=== PATIENT | female | born 2005 | race Caucasian/White ===

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

== ENCOUNTER 2024-03-19 21:08 | Inpatient (IN) | payer BC, MEDICAID, SELFPAY ==
[2024-03-19 21:13] VITALS: BP 127/74; PULSE 102; RESP 18; TEMP 37; O2SAT 98; BMI 36.6
[2024-03-19 21:35] LABS: Basophils # 0.1 10^3/uL (0.0-0.1); Basophils % 0.8 %; Eosinophils # 0.2 10^3/uL (0.0-0.8); Hematocrit 40.5 % (36-47); Lymphocytes # 1.6 10^3/uL (1.5-6.5); Lymphocytes % 21.4 %; Mean Corpuscular HGB Conc 30.6 g/dL (30-55); Mean Corpuscular Hemoglobin 25.4 pg (27-33); Mean Corpuscular Volume 82.8 fl (85-98); Mean Platelet Volume 9.2 fL (7.4-10.4); Monocytes # 0.4 10^3/uL (0.2-0.9); Monocytes % 5.6 %; Neutrophils % 70.1 %; Nucleated Red Blood Cells % 0 %; Platelet Count 335 10^3/cmm (157-399); Red Blood Count 4.89 10^6/uL (3.85-5.65); Red Cell Distribution Width 16.7 % (12.1-15.1); White Blood Count 7.56 10^3/uL (4.5-13.0)
--- NOTE | 2024-03-19 21:41 | ED.C_ITS ---
HPI - Psych 2 General: Chief Complaint: Psychiatric Symptoms Stated Complaint: MHE\SI Maybe Time Seen by Provider: 03/19/24 21:17 History of Present Illness: 18-year-old female with a history of dep ression. She has had admissions as an adolescent a couple of years ago for depression and self-harm. She presents with worsening depression. She states that she is having suicidal thoughts, and has multiple ideas as far as a plan. She feels unsafe at home. Medically she has no treated problems. Review of Systems 2 Const: Denies: fever(s), chills or body aches Eyes: Denies: change in vision Card: Denies: chest pain or palpitations Resp: Denies: dyspnea, productive cough, non-productive cough or wheezing GI: Denies: abdominal pain, nausea, vomiting, diarrhea or hematochezia : Denies: difficulty voiding Skin/Breast: Denies: rash Neuro: Denies: headache(s), weakness in extremities, dizziness or confusion PFSH ED 2 PFSH: Medical History Hirsutism Constipation Reflux esophagitis Hot flashes Fatigue Irregular bleeding Psychiatric care History of cardiac murmur As an infant she had evaluation and was followed by cardiology until age 2 with innocent murmur confirmed by echocardiogram. Surgical History S/P gastric sleeve procedure Performed in 2019 prior to moving to [place]. Family History Father Hyperlipidemia Hypertension Mother Diabetes Denies family history of Colon cancer Ovarian cancer Heart disease Breast cancer Uterine cancer Thyroid disease Stroke Physical Exam 2 Const: COMMON NORMALS: no acute distress GENERAL APPEARANCE: cooperative; not ill appearing and not frail appearing HENMT: COMMON NORMALS: normocephalic, atraumatic and Normal external nose present HEAD & SCALP: normocephalic and atraumatic FACE & SINUS: normal facial exam and face symmetric NOSE: Normal external nose present Eye: COMMON NORMALS: Equal, round and reactive pupils present and EOMs intact bilaterally PUPIL: Yes Equal, round and reactive pupils present Neck/C-Spine: GENERAL: Yes trachea midline Chest: CHEST: Yes Symmetrical chest wall rise Resp: COMMON NORMALS: normal respiratory effort, No retractions, No use of accessory muscles and clear to auscultation bilaterally AUSCULTATION: clear to auscultation bilaterally Cardio: COMMON NORMALS: regular rate and regular rhythm RATE: regular rate RHYTHM: regular rhythm GI: COMMON NORMALS: Normal to inspection, nondistended, normoactive bowel sounds present Extremity: COMMON NORMALS: no pedal edema Neuro: KAILYN COMA SCALE: document GCS findings [place] coma scale eye opening: Spontaneous Kailyn coma scale verbal response: Orientated Kailyn coma scale motor response: Obey commands Kailyn coma scale total score: 15 S ENSORY EXAM: Yes extremities (intact) Psych: COMMON NORMALS: speech normal SPEECH: Yes normal speech Skin: COMMON NORMALS: no rashes or lesions noted GENERAL SKIN EXAM: no rashes or lesions noted Course 2 Vital Signs: Vital signs: Vital Signs Temperature 98.2 F 03/19/24 23:08 Pulse Rate 65 03/19/24 23:08 Respiratory Rate 18 03/19/24 23:08 Blood Pressure 127/85 03/19/24 23:08 Pulse Oximetry 100 03/19/24 23:08 Oxygen Delivery Me thod Room Air 03/19/24 23:14 MDM - Psych Medical Decision Making Patient with a history of depression. She presents with worsening depression and suicidal ideation. Medically, she is quite stable. Lab Data 03/19/24 21:21 03/19/24 21:21 Laboratory Results WBC 7.56 10^3/uL (4.5-13.0) 03/19/24 21:21 RBC 4.89 10^6/uL (3.85-5.65) 03/19/24 21:21 Hgb 12.40 g/dL (12.4-14.8) 03/19/24 21:21 Hct 40.5 % (36-47) 03/19/24 21:21 MCV 82.8 fl (85-98) L 03/19/24 21:21 MCH 25.4 pg (27-33) L 03/19/24 21:21 MCHC 30.6 g/dL (30-55) 03/19/24 21:21 RDW 16.7 % (12.1-15.1) H 03/19/24 21:21 Plt Count 335 10^3/cmm (157-399) 03/19/24 21:21 MPV 9.2 fL (7.4-10.4) 03/19/24 21:21 Neut % (Auto) 70.1 % 03/19/24 21:21 Lymph % (Auto) 21.4 % 03/19/24 21:21 [place] % (Auto) 5.6 % 03/19/24 21:21 Eos % (Auto) 2.0 % 03/19/24 21:21 Baso % (Auto) 0.8 % 03/19/24 21:21 Neut # (Auto) 5.30 10^3/uL (1.8-8.0) 03/19/24 21:21 Lymph # (Auto) 1.6 10^3/uL (1.5-6.5) 03/19/24 21:21 [place] # (Auto) 0.4 10^3/uL (0.2-0.9) 03/19/24 21:21 Eos # (Auto) 0.2 10^3/uL (0.0-0.8) 03/19/24 21:21 Baso # (Auto) 0.1 10^3/uL (0.0-0.1) 03/19/24 21:21 Nucleated RBC % (auto) 0 % 03/19/24 21:21 Nucleated RBCs # 0.0 /100WBC 03/19/24 21:21 Sodium 137 mmol/L (136-145) 03/19/24 21:21 Potassium 4.4 mmol/L (3.5-5.1) 03/19/24 21:21 Chloride 103 mmol/L (98-107) 03/19/24 21:21 Carbon Dioxide 23 mmol/L (22-29) 03/19/24 21:21 Anion Gap 15.4 (5-19) 03/19/24 21:21 BUN 11 mg/dL (6-20) 03/19/24 21:21 Creatinine 0.6 mg/dL (0.5-0.9) 03/19/24 21:21 GFR Calculation 128.8 mL/min (90-130) 03/19/24 21:21 Glucose 109 mg/dL (65-115) 03/19/24 21:21 Calculated Osmolality 284 mOsm/kg (285-295) L 03/19/24 21:21 Calcium 9.1 mg/dL (8.5-10.5) 03/19/24 21:21 Total Bilirubin 0.2 mg/dL (0.15-1.2) 03/19/24 21:21 AST 17 U/L (0-32) 03/19/24 21:21 ALT 16 U/L (0-33) 03/19/24 21:21 Alkaline Phosphatase 73 U/L (35-105) 03/19/24 21:21 Total Protein 7.3 g/dL (6.6-8.7) 03/19/24 21:21 Albumin 4.2 g/dL (3.5-5.2) 03/19/24 21:21 Globulin 3.1 g/dL (1.3-4.6) 03/19/24 21:21 HCG, Qual Negative (Negative) 03/19/24 21:21 Urine Color Yellow (Yellow) 03/19/24 21:21 Urine Appearance Clear (CLEAR) 03/19/24 21:21 Urine pH 5 (5-7) 03/19/24 21:21 Ur Specific [place] 1.020 (1.005-1.030) 03/19/24 21:21 Urine Protein Trace (Negative) 03/19/24 21:21 Urine Glucose (UA) Norm (Normal) 03/19/24 21:21 Urine Ketones Negative (Negative) 03/19/24 21:21 Urine Blood Neg (Negative) 03/19/24 21:21 Urine Nitrate Negative (Negative) 03/19/24 21:21 Urine Bilirubin Neg (Negative) 03/19/24 21:21 Urine Urobilinogen 1 mg/dL (Negative) H 03/19/24 21:21 Ur Leukocyte Esterase Negative (Negative) 03/19/24 21:21 Urine RBC 0-4 /hpf (0-2) H 03/19/24 21:21 Urine WBC 0-4 /hpf (0-5) H 03/19/24 21:21 Ur Squamous Epith Cells 5-10 /hpf (0-5) H 03/19/24 21:21 Amorphous Sediment Not Reportable 03/19/24 21:21 Urine Bacteria Trace /hpf (NONE) 03/19/24 21:21 Salicylates < 0.3 mg/dL (3-10) L 03/19/24 21:21 Urine Opiates Screen Negative ng/mL (Negative) 03/19/24 21:21 Acetaminophen < 5.0 ug/mL (10-30) L 03/19/24 21:21 Ur Barbiturates Screen Negative ng/mL (Negative) 03/19/24 21:21 Ur Phencyclidine Scrn Negative ng/mL (Negative) 03/19/24 21:21 Ur Amphetamines Screen Negative ng/mL (Negative) 03/19/24 21:21 U Benzodiazepines Scrn Negative ng/mL (Negative) 03/19/24 21:21 Urine Cocaine Screen Negative ng/mL (Negative) 03/19/24 21:21 U Marijuana (THC) Screen Positive ng/mL (Negative) H 03/19/24 21:21 Ethyl Alcohol < 10 mg/dL (0-10) 03/19/24 21:21 No radiology studies performed this visit Discharge Plan Discharge Patient Disposition: Admitted As Inpatient Admit Provider: Eyal Phipps Clinical Impression: Depression, Suicidal ideation Condition: Stable Coding Level of Care Code ED Model Maker Scale for Margo Eubanks
[2024-03-19 21:47] LABS: Amphetamines Screen Urine Negative (Negative); Barbiturates Screen Urine Negative (Negative); Benzodiazepines Screen Urine Negative (Negative); Cocaine Screen Urine Negative (Negative); Opiate Screen Urine Negative (Negative); PCP Screen Urine Negative (Negative); THC Screen Urine Positive (Negative)
[2024-03-19 21:49] LABS: Alanine Aminotransferase 16 U/L (0-33); Albumin Level 4.2 g/dL (3.5-5.2); Alkaline Phosphatase 73 U/L (35-105); Anion Gap 15.4 (5-19); Aspartate Amino Transferase 17 U/L (0-32); Blood Urea Nitrogen 11 mg/dL (6-20); Calcium 9.1 mg/dL (8.5-10.5); Carbon Dioxide 23 mmol/L (22-29); Chloride 103 mmol/L (98-107); Creatinine Clr Calc Pharmacy 176.4544; Globulin 3.1 g/dL (1.3-4.6); Glomerular Filtration Rate 128.8 mL/min (90-130); Glucose 109 mg/dL (65-115); Osmolality Calculated 284 mOsm/kg (285-295); Potassium 4.4 mmol/L (3.5-5.1); Sodium 137 mmol/L (136-145); Total Bilirubin 0.2 mg/dL (0.15-1.2); Total Protein 7.3 g/dL (6.6-8.7)
[2024-03-19 21:52] LABS: Acetaminophen < 5.0 ug/mL (10-30); Add Urine Microscopic? YES; Alcohol Level < 10 mg/dL (0-10); Bilirubin Urine Neg (Negative); Blood Urine Neg (Negative); Glucose Urine UA Norm (Normal); Ketones Urine Negative (Negative); Leukocyte Esterase Urine Negative (Negative); Nitrate Urine Negative (Negative); Protein Urine Trace (Negative); Salicylate < 0.3 mg/dL (3-10); Urine Appearance Clear (CLEAR); Urine Color Yellow (Yellow); Urobilinogen Urine 1 mg/dL (Negative); pH Urine 5 (5-7)
[2024-03-19 21:53] LABS: Bacteria Urine TRACE /hpf; HCG Qualitative Urine. Negative (Negative); RBC Urine 0-4 /hpf (0-2); WBC Urine 0-4 /hpf (0-5)
[2024-03-19 23:08] VITALS: BP 127/85; PULSE 65; RESP 18; TEMP 36.8; O2SAT 100
--- NOTE | 2024-03-20 01:55 | PC.NURSE ---
Admission Note Pt arrived to NPU by wheelchair at 2308 on a voluntary hold. Pt states that she is here because her medications are making her feel weird and she wants to change them. Pt stated i know when you change your meds your body can react weird so I want to do it in a controlled environment. Pt has had 1 suicide attempt 2-3 years ago. Pt stated that she is not having suicidal thoughts but stated i just don't want to deal with life. Pt denies SI/HI/AVH during admission. Pts skin assessment was completed and scars were noted on her lower left wrist. Pt was dressed into NPU scrubs and orientated to the unit. Pt is now observed resting in bed quietly with eyes closed. Behavioral monitoring continues
[2024-03-20 06:00] VITALS: BP 113/74; PULSE 69; RESP 16; TEMP 36.5; O2SAT 100
[2024-03-20] MEDS: nicotine 2 mg Gum BUCCAL ×2 (10:27→21:09)
--- NOTE | 2024-03-20 13:48 | P.NPUHP_ITS ---
Providers/Chief Complaint 2 Admitting Physician: Eyal Phipps MD Primary Care Provider: Meena Jade, [facility]- Chief Complaint: MHE\SI Maybe HPI NPU History of Present Illness Smiley Juarez is a 18 year old female who presented to the emergency department with concerns about feeling unsafe in her home as she stated that she was having suicidal thoughts. She reports that she has had increased thoughts of wanting to cut herself or to jump out in front of a train. The patient was admitted to the neuropsychiatric unit for further evaluation and treatment. She reports that for the past 4 months she has had more problems with depression with low energy, low motivation, hypersomnia, and increased feelings of hopelessness. She reports that she has been feeling overwhelmed and tired. She reports that she has been struggling with abdominal discomfort and frequent episodes of nausea and emesis for the past several months. She reports that she had last seen her outpatient psychiatrist Dr. Upton in December 2023 and at that time she had wanted to restart her Vyvanse for ADHD and her Cymbalta to treat her depression. However, she had reported after restarting both of those medications she started having more problems with eating and then discontinued those medications. She reports having chronic problems with difficulties with planning and executing. She reports that she is often easily distracted. She had reported a history in the past of binge eating as well. She reports that she struggles with attention and concentration 2. She also reports having chronic problems with managing worry. She reports some significant stressors in the home including struggles with engaging with her mother. She has reported an increase in weight despite the gastric sleeve surgery. Patient had reported that she had simply given up recently and had stopped taking vitamins. She reports having difficulties with swallowing tablets. She had reported having problems with social anxiety as well in the past and stated that she had struggles with engaging socially with peers and often feeling as if she was the center of attention. She has reported having struggles with maintaining care for herself and states that she has been having more frequent thoughts of hurting herself over the past several months. She denies any drug or alcohol use. Inpatient psychiatric history: She had 1 previous inpatient hospitalization at the age of 15 in [facility] after she had engaged in self injury. Outpatient psychiatric history: She reports that she sees her therapist Rach and every 2 weeks at [facility], she is followed by a nurse practitioner at the [facility] in [facility]. Previous medication trials include trazodone, Vyvanse, duloxetine and Zoloft and wellbutrin. Drug and Alcohol History: None reported other than nicotine use through vaping , hx of occasional thc abuse. Medical history: History of morbid obesity, history of reflux esophagitis, history of constipation, history of hot flashes, Surgical history: History of gastric sleeve surgery in 2019 Allergies: No known drug allergies Current medications: None currently as patient is stopped her medications prescribed. Legal history: None Family history: Anxiety in mother, depression and biological father Social history: No history of developmental delays. Patient was raised in [place] until the age of 14. She had grown up living with her mother stepfather and brother and sister. She had reported that her father had left the home the patient was 6. She had reported having problems with attention and concentration requiring treatment for ADHD since her childhood. She currently lives with her mother in [facility]. She also reports having to care for 2 of her siblings that have developmental disorders. She reports being currently employed. She works job at [employer] in later shift. Meds NPU Allergies Allergy/AdvReac Type Severity Reaction Status Date / Time No Known Allergies Allergy Verified 01/05/24 16:54 PFSH NPU 2 PFSH: Medical History Hirsutism Constipation Reflux esophagitis Hot flashes Fatigue Irregular bleeding Psychiatric care History of cardiac murmur As an infant she had evaluation and was followed by cardiology until age 2 with innocent murmur confirmed by echocardiogram. Surgical History S/P gastric sleeve procedure Performed in 2019 prior to moving to [place]. Family History Father Hyperlipidemia Hypertension Mother Diabetes Denies family history of Colon cancer Ovarian cancer Heart disease Breast cancer Uterine cancer Thyroid disease Stroke Mental Status Exam 2 MSE Comments: She is a casually dressed overweight white female who appeared her stated age. She was alert and oriented to person place time and situation. Her hygiene was poor. Her speech was regular in regards to rate rhythm volume tone and prosody. Her eye contact was fair. There was no evidence of any abnormal involuntary motor movements ,tics , or tremors appreciated. Her thought process was linear logical and goal-directed. Her thought content showed no evidence of active homicidal ideation although she endorsed suicidal ideation with a plan to run out into traffic. Her mood was described as depressed. Her affect was restricted in range and mood congruent. There was no clear evidence of delusional thinking. She did not appear to be responding internal stimuli. Her recent and remote memory were grossly intact. Her insight is poor. Her judgment is poor. Her impulse control appeared limited. Vitals/I&O/Wt Last Vital Signs Temp 97.7 F 03/20/24 06:00 Pulse 69 03/20/24 06:00 Resp 16 03/20/24 06:00 BP 113/74 03/20/24 06:00 Pulse Ox 100 03/20/24 06:00 O2 Del Method Room Air 03/20/24 06:00 Weight last 48 hrs Weight 99.79 kg Weight 99.79 kg Data NPU 03/19/24 21:21 03/19/24 21:21 A&P Assessment and plan (1) Major depressive disorder: Qualifiers: Major depression recurrence: recurrent Active/Remission status: in partial remission Qualified Code(s): F33.41 - Major depressive disorder, recurrent, in partial remission (2) Generalized anxiety disorder: (3) Attention deficit hyperactivity disorder (ADHD): Qualifiers: Attention deficit-hyperactivity disorder type: unspecified Qualified Code(s): F90.9 - Attention-deficit hyperactivity disorder, unspecified type (4) Binge eating disorder: Plan 18-year-old female admitted with suicidal ideation with a history of ADHD, binge eating disorder, depression and anxiety currently not taking medications for depression, anxiety, or ADHD secondary to reported side effects. #1.? Engage patient in individual milieu and group therapy.? #2? Encourage sober living treatment after discharge at the highest level of care to which he is willing to commit. #3???Start Prozac 10mg to target depression. #4?? TO-15 minute checks? #5?? Will attempt to gather collateral information #6 Consider medical consult regarding further outpatient evaluation needed regarding persistent episodes of nausea, vomiting, etc... Involuntary Hold Information 2 96 Hour Hold: 96 Hour Involuntary Admission: No Attestations NPU 2 Medical Necessity Statement*: Inpatient hospitalization is medically necessary and deemed to ?be ?the clinically appropriate intervention ?at this time.? We will monitor/initiate medications and make changes as indicated.? The patient will be in the hospital for over 2 midnights.? The patient?s likely length of stay 7-10 days. Coding Level of Care Code Acute Code for Chg Fwd Diagnoses Recurrent major depressive disorder, in partial remission F33.41 Major depression recurrence: recurrent Active/Remission status: in partial remission Generalized anxiety disorder F41.1 Attention deficit hyperactivity disorder (ADHD), unspecified ADHD type F90.9 Attention deficit-hyperactivity disorder type: unspecified Binge eating disorder F50.81
[2024-03-20 14:00] VITALS: BP 129/73; PULSE 92; RESP 16; TEMP 37; O2SAT 97
[2024-03-20] MEDS: fluoxetine 10 mg Capsule PO (16:20)
[2024-03-20] MEDS: neomycin-poly-bacitracin oint 28 gm 1 APPLIC TOPICAL (21:10)
[2024-03-20 21:58] VITALS: BP 99/63; PULSE 70; RESP 16; TEMP 36.9; O2SAT 99
[2024-03-21 06:00] VITALS: BP 119/77; PULSE 70; RESP 16; TEMP 36.6; O2SAT 100
[2024-03-21] MEDS: fluoxetine 10 mg Capsule PO (08:07)
[2024-03-21] MEDS: ondansetron 4 MG Tablet PO (08:19)
--- NOTE | 2024-03-21 08:20 | PC.NURSE ---
PT CAME TO NURSES STATION AFTER TAKING MORNING MEDICATIONS COMPLAINING OF NAUSEA. PT GIVEN ZOFRAN AND ADVISED BY THIS NURSE TO LET STAFF KNOW IF IT DOESNT HELP OR IF SHE VOMITS.
[2024-03-21] MEDS: OLANZapine 5 mg ODT PO (09:19)
--- NOTE | 2024-03-21 09:21 | PC.NURSE ---
Patient crying in room, upset about medications that has prescribed. Patient is also wanting to be home. Administered zyprexa 5mg ODT to patient. Will continue to check on patient.
[2024-03-21] MEDS: neomycin-poly-bacitracin oint 28 gm 1 APPLIC TOPICAL (12:28)
--- NOTE | 2024-03-21 14:34 | W.PM.NPUDCS ---
Diagnoses at Discharge Discharge Diagnosis (1) Major depressive disorder: Status: Acute Qualifiers: Active/Remission status: in partial remission Major depression recurrence: recurrent Qualified Code(s): F33.41 - Major depressive disorder, recurrent, in partial remission (2) Generalized anxiety disorder: Status: Acute (3) Attention deficit hyperactivity disorder (ADHD): Status: Acute Qualifiers: Attention deficit-hyperactivity disorder type: unspecified Qualified Code(s): F90.9 - Attention-deficit hyperactivity disorder, unspecified type (4) Binge eating disorder: Status: Acute Reason for Visit Reason for Visit: MHE\SI Maybe Brief History: History of Present Illness Smiley Juarez is a 18 year old female who presented to the emergency department with concerns about feeling unsafe in her home as she stated that she was having suicidal thoughts. She reports that she has had increased thoughts of wanting to cut herself or to jump out in front of a train. The patient was admitted to the neuropsychiatric unit for further evaluation and treatment. She reports that for the past 4 months she has had more problems with depression with low energy, low motivation, hypersomnia, and increased feelings of hopelessness. She reports that she has been feeling overwhelmed and tired. She reports that she has been struggling with abdominal discomfort and frequent episodes of nausea and emesis for the past several months. She reports that she had last seen her outpatient psychiatrist Dr. Upton in December 2023 and at that time she had wanted to restart her Vyvanse for ADHD and her Cymbalta to treat her depression. However, she had reported after restarting both of those medications she started having more problems with eating and then discontinued those medications. She reports having chronic problems with difficulties with planning and executing. She reports that she is often easily distracted. She had reported a history in the past of binge eating as well. She reports that she struggles with attention and concentration 2. She also reports having chronic problems with managing worry. She reports some significant stressors in the home including struggles with engaging with her mother. She has reported an increase in weight despite the gastric sleeve surgery. Patient had reported that she had simply given up recently and had stopped taking vitamins. She reports having difficulties with swallowing tablets. She had reported having problems with social anxiety as well in the past and stated that she had struggles with engaging socially with peers and often feeling as if she was the center of attention. She has reported having struggles with maintaining care for herself and states that she has been having more frequent thoughts of hurting herself over the past several months. She denies any drug or alcohol use. Inpatient psychiatric history: She had 1 previous inpatient hospitalization at the age of 15 in [facility] after she had engaged in self injury. Outpatient psychiatric history: She reports that she sees her therapist Rach and every 2 weeks at [facility], she is followed by a nurse practitioner at the [facility] in [facility]. Previous medication trials include trazodone, Vyvanse, duloxetine and Zoloft and wellbutrin. Drug and Alcohol History: None reported other than nicotine use through vaping , hx of occasional thc abuse. Medical history: History of morbid obesity, history of reflux esophagitis, history of constipation, history of hot flashes, Surgical history: History of gastric sleeve surgery in 2020 Allergies: No known drug allergies Current medications: None currently as patient is stopped her medications prescribed. Legal history: None Family history: Anxiety in mother, depression and biological father Social history: No history of developmental delays. Patient was raised in [place] until the age of 14. She had grown up living with her mother stepfather and brother and sister. She had reported that her father had left the home the patient was 6. She had reported having problems with attention and concentration requiring treatment for ADHD since her childhood. She currently lives with her mother in [facility]. She also reports having to care for 2 of her siblings that have developmental disorders. She reports being currently employed. She works job at [employer] in later shift. Hospital Course Hospital Course During the hospitalization, the patient had routine laboratory studies which were within normal limits except for a few outliers.? Additionally, there was a general medical evaluation which was also within normal limits and revealed no new acute processes. ?At the time of discharge, lethality was denied and psychosis was denied.? Mood and anxiety were well managed.? The patient endorsed a plan to avoid all drugs of abuse and follow up with the aftercare recommendations of the treatment team.? The patient was evaluated and deemed to be absent credible lethality and had achieved the maximum benefit from an inpatient hospitalization, and so was discharged. The patient was referred to her primary care physician as she continued to struggle with episodes of emesis and abdominal discomfort that required further evaluation given her history of gastric sleeve surgery. Patient was given tablets of Prozac to start at 10 mg daily with an increase to 20 mg daily to target depression. She continued to struggle with ADHD symptoms and was strongly encouraged to restart Vyvanse with the suggestion to mix the Vyvanse with some specific foods that would allow it to be more easily swallowed.. She had expressed interest in restarting psychotherapy as well on an outpatient basis. Involuntary Hold Information 96 Hour Hold: 96 Hour Involuntary Admission: No Mental Status Exam MSE Comments: She is a casually dressed overweight white female who appeared her stated age. She was alert and oriented to person place time and situation. Her hygiene was fair. Her speech was regular in regards to rate rhythm volume tone and prosody. Her eye contact was fair. There was no evidence of any abnormal involuntary motor movements ,tics , or tremors appreciated. Her thought process was linear logical and goal-directed. Her thought content showed no evidence of active homicidal ideation and no evidence of suicidal ideation. Her mood was described as okay. Her affect was mildly restricted. There was no clear evidence of delusional thinking. She did not appear to be responding internal stimuli. Her recent and remote memory were grossly intact. Her insight is fair. Her judgment is fair. Her impulse control appeared poor. Discharge Data Studies Completed and Pending: Laboratory Results WBC 7.56 10^3/uL (4.5 -13.0) 03/19/24 21: RBC 4.89 10^6/uL (3.8 5-5.65) 03/19/24 21:21 Hgb 12.40 g/dL (12.4- 14.8) 03/19/24 21:21 Hct 40.5 % (36-47) 03/19/24 21:21 MCV 82.8 fl (85-98) L 03/19/24 21: MCH 25.4 pg (27-33) L 03/19/24 21: MCHC 30.6 g/dL (30-55) 03/19/24 21: RDW 16.7 % (12.1-15.1 ) H 03/19/24 21:21 Plt Count 335 10^3/cmm (157 -399) 03/19/24 21: MPV 9.2 fL (7.4-10.4) 03/19/24 21:21 Neut % (Auto) 70.1 % 03/19/24 21:21 Lymph % (Auto) 21.4 % 03/19/24 21:21 [place] % (Auto) 5.6 % 03/19/24 21:21 Eos % (Auto) 2.0 % 03/19/24 21:21 Baso % (Auto) 0.8 % 03/19/24 21:21 Neut # (Auto) 5.30 10^3/uL (1.8 -8.0) 03/19/24 21:21 Lymph # (Auto) 1.6 10^3/uL (1.5- 6.5) 03/19/24 21:21 [place] # (Auto) 0.4 10^3/uL (0.2- 0.9) 03/19/24 21:21 Eos # (Auto) 0.2 10^3/uL (0.0- 0.8) 03/19/24 21:21 Baso # (Auto) 0.1 10^3/uL (0.0- 0.1) 03/19/24 21:21 Nucleated RBC % (a uto) 0 % 03/19/24 21:21 Nucleated RBCs # 0.0 /100WBC 03/19/24 21:21 Sodium 137 mmol/L (136-1 45) 03/19/24 21:21 Potassium 4.4 mmol/L (3.5-5 .1) 03/19/24 21:21 Chloride 103 mmol/L (98-10 7) 03/19/24 21:21 Carbon Dioxide 23 mmol/L (22-29) 03/19/24 21:21 Anion Gap 15.4 (5-19) 03/19/24 21:21 BUN 11 mg/dL (6-20) 03/19/24 21:21 Creatinine 0.6 mg/dL (0.5-0. 9) 03/19/24 21:21 GFR Calculation 128.8 mL/min (90- 130) 03/19/24 21:21 Glucose 109 mg/dL (65-115 ) 03/19/24 21:21 Calculated Osmolal ity 284 mOsm/kg (285- 295) L 03/19/24 21:21 Calcium 9.1 mg/dL (8.5-10 .5) 03/19/24 21:21 Total Bilirubin 0.2 mg/dL (0.15-1 .2) 03/19/24 21:21 AST 17 U/L (0-32) 03/19/24 21:21 ALT 16 U/L (0-33) 03/19/24 21:21 Alkaline Phosphata se 73 U/L (35-105) 03/19/24 21:21 Total Protein 7.3 g/dL (6.6-8.7 ) 03/19/24 21:21 Albumin 4.2 g/dL (3.5-5.2 ) 03/19/24 21:21 Globulin 3.1 g/dL (1.3-4.6 ) 03/19/24 21:21 HCG, Qual Negative (Negati ve) 03/19/24 21:21 Urine Color Yellow (Yellow) 03/19/24 21:21 Urine Appearance Clear (CLEAR) 03/19/24 21:21 Urine pH 5 (5-7) 03/19/24 21:21 Ur Specific Gravit y 1.020 (1.005-1.0 30) 03/19/24 21:21 Urine Protein Trace (Negative) 03/19/24 21:21 Urine Glucose (UA) Norm (Normal) 03/19/24 21:21 Urine Ketones Negative (Negati ve) 03/19/24 21:21 Urine Blood Neg (Negative) 03/19/24 21:21 Urine Nitrate Negative (Negati ve) 03/19/24 21:21 Urine Bilirubin Neg (Negative) 03/19/24 21:21 Urine Urobilinogen 1 mg/dL (Negative ) H 03/19/24 21:21 Ur Leukocyte Sherry ase Negative (Negati ve) 03/19/24 21:21 Urine RBC 0-4 /hpf (0-2) H 03/19/24 21:21 Urine WBC 0-4 /hpf (0-5) H 03/19/24 21:21 Ur Squamous Epith Cells 5-10 /hpf (0-5) H 03/19/24 21:21 Amorphous Sediment Not Reportable 03/19/24 21:21 Urine Bacteria Trace /hpf (NONE) 03/19/24 21:21 Salicylates < 0.3 mg/dL (3-10 ) L 03/19/24 21:21 Urine Opiates Scre en Negative ng/mL (N egative) 03/19/24 21:21 Acetaminophen < 5.0 ug/mL (10-3 0) L 03/19/24 21:21 Ur Barbiturates Sc reen Negative ng/mL (N egative) 03/19/24 21:21 Ur Phencyclidine S crn Negative ng/mL (N egative) 03/19/24 21:21 Ur Amphetamines Sc reen Negative ng/mL (N egative) 03/19/24 21:21 U Benzodiazepines Scrn Negative ng/mL (N egative) 03/19/24 21:21 Urine Cocaine Scre en Negative ng/mL (N egative) 03/19/24 21:21 U Marijuana (THC) Screen Positive ng/mL (N egative) H 03/19/24 21:21 Ethyl Alcohol < 10 mg/dL (0-10) 03/19/24 21:21 Vitals: Last Vital Signs Temp 97.9 F 03/21/24 06:00 Pulse 70 03/21/24 06:00 Resp 16 03/21/24 06:00 BP 119/77 03/21/24 06:00 Pulse Ox 100 03/21/24 06:00 O2 Del Method Room Air 03/21/24 06:00 Discharge Plan Discharge Patient Disposition: Home Condition: Stable Prescriptions: New fluoxetine 20 mg tablet 20 mg PO DAILY Qty: 30 1RF Rx Instructions: Take 1/2 tablet daily x3 days then increase to 1 tablet daily. (Patient cannot swallow capsule, please give tablet only) Discharge Orders: Discharge Order (Routine); Ordered 03/21/24 Ordered By: Benjamin Callahan Referrals: Alea Catalan PMHNP [Staff Physician] - 03/28/24 2:15 pm Meena Jade FNP-BC [Primary Care Provider] - 03/22/24 1:30 pm Discharge Diet: Usual diet Discharge Activity: Resume usual activity Patient Instructions: Fluoxetine (By mouth) (Fluoxetine HCl, Gaboxetine, Prozac, Prozac Weekly), Depression (DC), Anxiety (DC), Suicide Prevention (DC), Binge Eating Disorder in Adolescents (GEN), Opioid Safety Discharge Attestations NPU Time Spent in Discharge Care*: less than 30 min Specific Discharge Activities: Specific discharge activities: educating patient and documenting/other paperwork Coding Level of Care Code Acute Code for Chg Fwd Diagnoses Recurrent major depressive disorder, in partial remission F33.41 Active/Remission status: in partial remission Major depression recurrence: recurrent Generalized anxiety disorder F41.1 Attention deficit hyperactivity disorder (ADHD), unspecified ADHD type F90.9 Attention deficit-hyperactivity disorder type: unspecified Binge eating disorder F50.81
[2024-03-21 15:48] VITALS: BP 119/77; PULSE 70; RESP 16; TEMP 36.6; O2SAT 100
== END 2024-03-21 16:04 | disposition home or self-care (01) | DRG 885 ==
LOC: ER 21:42 → NP 22:30
PROVIDERS: Admitting Provider Psychiatry & Neurology Psychiatry; Emergency Provider Emergency Medicine; PCP Nurse Practitioner; Visit Provider Psychiatry & Neurology Psychiatry
DX: F33.41 Major depressive disorder, recurrent, in partial remission (principal); R45.851 Suicidal ideations; F41.1 Generalized anxiety disorder; F90.9 Attention-deficit hyperactivity disorder, unspecified type; F50.81 Binge eating disorder
CPT/HCPCS: 80053; 80306; 80307; 81001; 81025; 85025; 97165; 99285; Q0162

== ENCOUNTER → 2024-04-17 11:34 | Outpatient (BNVA) | payer BC, MEDICAID, SELFPAY | PROVIDERS: PCP Nurse Practitioner; Visit Provider Emergency Medicine | DX: Z20.822 Contact with and (suspected) exposure to COVID-19 (principal); J06.9 Acute upper respiratory infection, unspecified | CPT/HCPCS: 87426 ==

== ENCOUNTER 2024-07-30 19:05 | Emergency (ER) | payer BC, MEDICAID, SELFPAY ==
[2024-07-30 19:10] VITALS: BP 143/87; PULSE 74; RESP 16; TEMP 36.6; O2SAT 97; BMI 39.4
--- NOTE | 2024-07-30 20:04 | ED_ITS ---
HPI - Eye Problem General: Chief complaint: Eye Problems Stated complaint: swollen lt eye Time Seen by Provider: 07/30/24 19:20 History of Present Illness: Patient is a 18-year-old female that presents to the emergency department with 3-day history of left eye swelling redness and tenderness to palpation. Patient notes symptoms have waxed and waned for the last 3 days but became more persistent today. She denies any eye pain or vision change. She denies fevers chills or any other complaints. Associated symptoms: Denies fever(s), headache(s), nausea, neck pain or vomiting Related Data Home Medications Medication Instructions Recorded Confirmed ferrous sulfate 325 mg (65 mg 325 mg PO DAILY 04/14/24 06/14/24 iron) tablet,delayed release spironolactone 50 mg tablet 50 mg PO BID 04/14/24 06/14/24 Previous Rx's Medication Instructions Recorded fluoxetine 20 mg tablet 20 mg PO DAILY #30 tabs 06/14/24 amoxicillin 875 mg-potassium 1 tab PO BID 7 days #14 tabs 07/30/24 clavulanate 125 mg tablet sulfamethoxazole 800 1 tab PO BID 7 days #14 tabs 07/30/24 mg-trimethoprim 160 mg tablet (Bactrim DS) Allergies Allergy/AdvReac Type Severity Reaction Status Date / Time No Known Allergies Allergy Verified 07/30/24 19:14 Review of Systems General: Reports: 10 or more systems reviewed and unremarkable except in HPI and below Const: Denies: fever(s), chills, change in appetite, change in weight, fatigue or malaise Eyes: Reports: eye discharge, eye redness and other (Swelling of her eyelid); Denies: change in vision or eye discomfort ENMT: Denies: throat pain, enlarged tonsils, odynophagia, hoarseness, ear or mastoid pain, ear discharge, change in hearing, tinnitus, nasal discharge, nasal congestion, post nasal drip or sinus pain Card: Denies: chest pain, palpitations, irregular heart rhythm, edema, dyspnea on exertion, orthopnea or leg pain with exertion Resp: Denies: dyspnea, productive cough, non-productive cough, wheezing, stridor or chest congestion GI: Denies: abdominal pain, nausea, vomiting, dysphagia, diarrhea, constipation, bloating, GI cramping or hematochezia : Denies: flank pain, difficulty voiding, dysuria, urinary frequency, urinary urgency, urinary hesitancy, oliguria or hematuria Musc: Denies: neck pain, back pain, extremity pain, joint pain, joint swelling, joint redness, joint warmth or muscle weakness Skin/Breast: Denies: rash, pruritus, erythema, photosensitivity or new lesions Neuro: Denies: headache(s), numbness in extremities, weakness in extremities, sensory changes, lack of coordination, difficulty walking, frequent falls, dizziness, confusion, Slurred speech present, difficulty communicating thoughts, seizure-like activity or involuntary movements Endo: Denies: polyuria, polydipsia or tired all the time Bruno/Lymph: Denies: easy bruising or easy bleeding PFS ED PFSH: Medical History (Updated 07/30/24 @ 20:10 by Rod Elizondo INSEAMER) Cannabis abuse Binge eating disorder Hirsutism Constipation Reflux esophagitis Hot flashes Fatigue Irregular bleeding Psychiatric care History of cardiac murmur As an she had evaluation and was followed by cardiology until age 2 with innocent murmur confirmed by echocardiogram. Surgical History S/P gastric sleeve procedure Performed in 2019 prior to moving to [place]. Family History Father Hyperlipidemia Hypertension Mother Diabetes Denies family history of Colon cancer Ovarian cancer Heart disease Breast cancer Uterine cancer Thyroid disease Stroke Social History Smoking and tobacco/nicotine status: never used tobacco/nicotine Physical Exam Const: COMMON NORMALS: no acute distress, average body habitus, patient oriented x3, healthy appearing and alert GENERAL APPEARANCE: cooperative and comfortable ORIENTATION/CONSCIOUSNESS: Yes awake, Yes oriented to person, Yes oriented to place and Yes oriented to time Eye: COMMON NORMALS: Equal, round and reactive pupils present VISUAL ACUITY: Yes acuity normal VISUAL SHERIDAN: No peripheral vision loss and No central vision loss ALIGNMENT: Yes alignment normal PERIORBITAL: periorbital findings abnormal positive left periorbital swelling, periorbital tenderness and periorbital erythema EYELID: eyelid abnormality left upper eyelid erythema, ptosis, swelling and tenderness CONJUNCTIVA: Yes conjunctival abnormal positive left conjunctival chemosis and conjunctival injection SCLERA: sclerae normal CORNEA: Yes corneas normal PUPIL: Yes Equal, round and reactive pupils present Neuro: COMMON NORMALS: patient oriented x3 SENSORIUM/ORIENTATION: Yes alert, Yes oriented to person, Yes oriented to place and Yes oriented to time Course Vital Signs: Vital signs: Vital Signs Temperature 97.9 F 07/30/24 19:10 Pulse Rate 74 07/30/24 19:10 Respiratory Rate 16 07/30/24 19:10 Blood Pressure 143/87 07/30/24 19:10 Pulse Oximetry 97 07/30/24 19:10 MDM - Eye Problem Medical Decision Making Patient evaluated in the emergency department today for complaints of left eye swelling. Is evident that the patient has preseptal cellulitis. Mild tenderness to palpation but no crepitus. We did treat her with Bactrim and Augmentin. She is getting treatment started here in the emergency department and will be discharged with prescription she will need to steel pickler in the morning. At this time I do not believe she warrants a CT but if her symptoms worsen or do not improve then she should return to the emergency department promptly for a CT of her face. all questions answered No radiology studies performed this visit Discharge Plan Discharge Patient Disposition: Home Clinical Impression: Preseptal cellulitis of left eye Condition: Stable Prescriptions: New amoxicillin-pot clavulanate 875-125 mg tablet 1 tab PO BID 7 Days Qty: 14 0RF sulfamethoxazole-trimethoprim [Bactrim DS] 800-160 mg tablet 1 tab PO BID 7 Days Qty: 14 0RF No Action ferrous sulfate 325 mg (65 mg iron) tablet,delayed release (DR/EC) 325 mg PO DAILY spironolactone 50 mg tablet 50 mg PO BID fluoxetine 20 mg tablet 20 mg PO DAILY Qty: 30 1RF Discharge Orders: Discharge ED (Routine); Ordered 07/30/24 [facility] Referrals: Meena Jade FNP-ANGELITO [Primary Care Provider] - Discharge Diet: Advance as tolerated Discharge Activity: Resume usual activity Patient Instructions: Periorbital Cellulitis (ED), Pain Management Activity Restrictions/Additional Instructions: Return to the emergency department if: You lose vision in your infected eye. You have vision problems, such as double vision. You have difficulty moving your eyeball. You cannot close your eye due to swelling. Page 2 of 4 You develop a headache and are vomiting. You have a stiff neck. You see red streaks coming from the infected area Antibiotics as prescribed Coding Level of Care Code ED Shear Setter for Margo Eubanks
[2024-07-30] MEDS: amoxicillin-clav 875-125 mg Tablet 1 TAB PO (20:25)
[2024-07-30] MEDS: sulfamethoxazole-trimeth DS 160-800 mg Tablet 1 TAB PO (20:25)
== END 2024-07-30 20:28 | disposition home or self-care (01) ==
PROVIDERS: Emergency Provider Nurse Practitioner; PCP Nurse Practitioner
DX: L03.213 Periorbital cellulitis (principal)
CPT/HCPCS: 99283

== ENCOUNTER 2024-12-25 20:07 | Emergency (ER) | payer BC, MEDICAID, SELFPAY ==
[2024-12-25 20:10] VITALS: BP 133/70; PULSE 73; RESP 16; TEMP 36.2; O2SAT 100; BMI 40.3
--- NOTE | 2024-12-25 21:06 | W.ED.ABDPA2 ---
Documented by User: [email or web address] Benavidez 12/25/24 23:58 HPI - Abdominal Pain General: Chief Complaint: Abdominal Pain Stated Complaint: ABD Pain Time Seen by Provider: 12/25/24 20:08 Source: patient Mode of arrival: ambulatory Limitations: no limitations History of Present Illness: Patient is a 19-year-old female who presents the emergency department planing of abdominal pain for the past 2 days. Notes that overall she has had this pain for years but is concerned that the past 2 days has been constant and associated with diarrhea. States that in the past has attributed it to constipation and has been taking MiraLAX, has not taken any of this recently states her last normal bowel movement was in the waiting room and she had 2 episodes of diarrhea. Reporting associated nausea. States that the pain primarily is to the center of her abdomen, sometimes radiates to her back. Last menstrual period was 3 weeks ago, stating it was shorter than usual. Notes that pain is made worse by eating or drinking, no other specific alleviating or exacerbating factors noted at this time. No urinary symptoms, headache or dizziness, vaginal bleeding or discharge, or other symptoms at this time. Her vitals are within normal limits. Does note a history of gastric sleeve procedure 5 years ago. MD elicited complaint: abdominal pain Pertinent past history: other (Gastric sleeve 5 years ago) Onset (ago): day(s) Pain Consistency: constant Location: Periumbilical Severity: moderate Quality: cramping Radiation: back Exacerbating factors: eating Relieving factors: nothing Context: history of similar episodes Associated Symptoms: Reports diarrhea and nausea; Denies bloating, change in stool character, chills, constipation, dysuria, fever(s), hematochezia and vomiting Related Data Home Medications ?Medication ?Instructions ?Recorded ?Confirmed ferrous sulfate 325 mg (65 mg 325 mg PO DAILY 04/14/24 12/20/24 iron) tablet,delayed release spironolactone 50 mg tablet 50 mg PO BID 04/14/24 12/20/24 Previous Rx's ?Medication ?Instructions ?Recorded fluoxetine 20 mg tablet 20 mg PO DAILY #30 tabs 11/21/24 Allergies Allergy/AdvReac Type Severity Reaction Status Date / Time No Known Allergies Allergy Verified 12/20/24 13:24 Review of Systems General: Reports: 10 or more systems reviewed and unremarkable except in HPI and below Const: Denies: fever(s), chills, change in appetite, change in weight or diaphoresis ENMT: Denies: throat pain or hoarseness Card: Denies: chest pain, palpitations or lightheadedness Resp: Denies: dyspnea, productive cough or wheezing GI: Reports: abdominal pain, nausea and diarrhea; Denies: vomiting, constipation, bloating, change in stool character or hematochezia : Denies: flank pain, difficulty voiding, dysuria, urinary frequency or urinary urgency Musc: Reports: back pain; Denies: neck pain Skin/Breast: Denies: rash or new lesions Neuro: Denies: headache(s) or dizziness PFSH ED PFSH: Medical History Cannabis abuse Binge eating disorder Hirsutism Constipation Reflux esophagitis Hot flashes Fatigue Irregular bleeding Psychiatric care History of cardiac murmur As an infant she had evaluation and was followed by cardiology until age 2 with innocent murmur confirmed by echocardiogram. Surgical History S/P gastric sleeve procedure Performed in 2019 prior to moving to [place]. Family History Father Hyperlipidemia Hypertension Mother Diabetes Denies family history of Colon cancer Ovarian cancer Heart disease Breast cancer Uterine cancer Thyroid disease Stroke Social History Smoking and tobacco/nicotine status: never used tobacco/nicotine Physical Exam Const: COMMON NORMALS: no acute distress, patient oriented x3, no limitations, alert and well nourished GENERAL APPEARANCE: cooperative and comfortable NUTRITIONAL APPEARANCE: obese morbidly obese ORIENTATION/CONSCIOUSNESS: Yes awake HENMT: COMMON NORMALS: normocephalic, atraumatic, hearing grossly normal bilaterally, Normal external nose present, Normal nasal mucous membranes and turbinates present and moist oral mucous membranes HEAD & SCALP: normocephalic and atraumatic NOSE: Normal external nose present and Normal nasal mucous membranes and turbinates present Eye: COMMON NORMALS: Equal, round and reactive pupils present, EOMs intact bilaterally, conjunctivae normal and normal visual burns by confrontation CONJUNCTIVA: Yes conjunctivae normal PUPIL: Yes Equal, round and reactive pupils present Neck/C-Spine: COMMON NORMALS: full ROM, supple, no meningeal signs and no JVD Resp: COMMON NORMALS: normal respiratory effort, No retractions, No use of accessory muscles and clear to auscultation bilaterally AUSCULTATION: clear to auscultation bilaterally, no crackles, no rales, no rhonchi and no wheezes Cardio: COMMON NORMALS: no JVD, regular rate, regular rhythm, S1 normal heart sound present, S2 normal heart sound present, No gallops present (Cardio), No clicks present (Cardio), No murmurs present (Cardio), No rub (Cardio) and Peripheral pulses 2+ throughout RATE: regular rate RHYTHM: regular rhythm HEART SOUNDS: S1 normal heart sound present and S2 normal heart sound present PERIPHERAL PULSES: Peripheral pulses 2+ throughout GI: COMMON NORMALS: Normal to inspection, nondistended, normoactive bowel sounds present, Soft to palpation, No hepatosplenomegaly present and no masses AUSCULTATION: Yes normoactive bowel sounds PALPATION: Yes Soft to palpation, Yes Tenderness to palpation present (GI) (Very mild to periumbilical region), No Guarding due to palpation present (GI), No Rigid due to palpation and Yes No hepatosplenomegaly present RECTAL EXAM: deferred Extremity: COMMON NORMALS: normal to inspection and full ROM Neuro: COMMON NORMALS: patient oriented x3, moves all extremities, no focal motor deficits and no sensory deficits noted SENSORIUM/ORIENTATION: Yes alert MENINGEAL SIGNS: Yes no meningeal signs Psych: COMMON NORMALS: mental status grossly normal, cooperative and speech normal SPEECH: Yes normal speech Skin: COMMON NORMALS: no rashes or lesions noted GENERAL SKIN EXAM: no rashes or lesions noted Course Vital Signs: Vital signs: Vital Signs Temperature 97.2 F L 12/25/24 20:10 Pulse Rate 74 12/25/24 22:30 Respiratory Rate 16 12/25/24 20:10 Blood Pressure 121/69 12/25/24 22:30 Pulse Oximetry 97 12/25/24 22:30 Oxygen Delivery Me thod Room Air 12/25/24 22:30 MDM - Abdominal Pain Medical Decision Making Patient presenting for abdominal pain, stating this is chronic but worsening over the past 2 days and associated with diarrhea. History of gastric sleeve 5 years ago. Vitals have been normal, exam overall unremarkable she was not significantly tender on palpation. Her lab work was all normal, x-ray showing no significant abnormalities. Do not suspect any surgical abdominal emergency or need for further workup. Will have her see her regular doctor for further workup and return with any new or worsening. Stable for discharge at this time. Lab Data 12/25/24 21:09 12/25/24 21:09 Labs/Radiology: Radiology Impressions KUB X-Ray 12/25/24 21: IMPRESSION: Nonobstructive bowel-gas pattern. Laboratory Results WBC 9.24 10^3/uL (4.5-13.0) 12/25/24 21: RBC 4.34 10^6/uL (3.85-5.65) 12/25/24 21: Hgb 12.10 g/dL (12.4-14.8) L 12/25/24 21: Hct 37.8 % (36-47) 12/25/24 21: MCV 87.1 fl (85-98) 12/25/24 21: MCH 27.9 pg (27-33) 12/25/24 21: MCHC 32.0 g/dL (30-55) 12/25/24 21: RDW 13.2 % (12.1-15.1) 12/25/24 21: Plt Count 307 10^3/cmm (157-399) 12/25/24 21: MPV 9.1 fL (7.4-10.4) 12/25/24 21: Neut % (Auto) 68.1 % 12/25/24 21: Lymph % (Auto) 17.5 % 12/25/24 21:09 Desha % (Auto) 5.2 % 12/25/24 21: Eos % (Auto) 8.5 % 12/25/24 21: Baso % (Auto) 0.4 % 12/25/24: Neut # (Auto) 6.28 10^3/uL (1.8-8.0) 12/25/24 21: Lymph # (Auto) 1.6 10^3/uL (1.5-6.5) 12/25/24 21: Desha # (Auto) 0.5 10^3/uL (0.2-0.9) 12/25/24 21:09 Eos # (Auto) 0.8 10^3/uL (0.0-0.8) 12/25/24 21:09 Baso # (Auto) 0.0 10^3/uL (0.0-0.1) 12/25/24 21:09 Nucleated RBC % (auto) 0 % 12/25/24 21: Nucleated RBCs # 0.0 /100WBC 12/25/24 21:09 Sodium 140 mmol/L (136-145) 12/25/24 21:09 Potassium 4.0 mmol/L (3.5-5.1) 12/25/24 21:09 Chloride 106 mmol/L (98-107) 12/25/24 21:09 Carbon Dioxide 22 mmol/L (22-29) 12/25/24 21:09 Anion Gap 16.0 (5-19) 12/25/24 21:09 BUN 12 mg/dL (6-20) 12/25/24 21:09 Creatinine 0.7 mg/dL (0.5-0.9) 12/25/24 21:09 GFR Calculation 106.7 mL/min (90-130) 12/25/24 21:09 Glucose 86 mg/dL (65-115) 12/25/24 21:09 Calculated Osmolality 289 mOsm/kg (285-295) 12/25/24 21:09 Calcium 9.2 mg/dL (8.5-10.5) 12/25/24 21:09 Total Bilirubin 0.2 mg/dL (0.15-1.2) 12/25/24 21:09 AST 14 U/L (0-32) 12/25/24 21:09 ALT 9 U/L (0-33) 12/25/24 21:09 Alkaline Phosphatase 88 U/L (35-105) 12/25/24 21:09 Total Protein 7.3 g/dL (6.6-8.7) 12/25/24 21:09 Albumin 4.4 g/dL (3.5-5.2) 12/25/24 21:09 Globulin 2.9 g/dL (1.3-4.6) 12/25/24 21:09 Lipase 17 U/L (13-60) 12/25/24 21:09 HCG, Qual Negative (Negative) 12/25/24 21:09 Urine Color Yellow (Yellow) 12/25/24 21:00 Urine Appearance Clear (CLEAR) 12/25/24 21:00 Urine pH 5 (5-7) 12/25/24 21:00 Ur Specific [place] 1.025 (1.005-1.030) 12/25/24 21:00 Urine Protein Neg (Negative) 12/25/24 21:00 Urine Glucose (UA) Norm (Normal) 12/25/24 21:00 Urine Ketones Negative (Negative) 12/25/24 21:00 Urine Blood Neg (Negative) 12/25/24 21:00 Urine Nitrate Negative (Negative) 12/25/24 21:00 Urine Bilirubin 1+ (Negative) H 12/25/24 21:00 Urine Urobilinogen Norm mg/dL (Negative) 12/25/24 21:00 Ur Leukocyte Esterase Trace (Negative) H 12/25/24 21:00 Urine RBC 0-2 /hpf (0-2) 12/25/24 21:00 Urine WBC 6-10 /hpf (0-5) 12/25/24 21:00 Ur Squamous Epith Cells 11-20 /hpf (0-5) H 12/25/24 21:00 Amorphous Sediment Not Reportable 12/25/24 21:00 Urine Bacteria Trace /hpf (NONE) 12/25/24 21:00 Hyaline Casts 1.65 /lpf 12/25/24 21:00 All radiology interpretation(s) finalized by discharge Discharge Plan Discharge Patient Disposition: Home Clinical Impression: Constipation Qualifiers: Constipation type: slow transit constipation Qualified Code(s): K59.01 - Slow transit constipation Condition: Stable Prescriptions: No Action ferrous sulfate 325 mg (65 mg iron) tablet,delayed release (DR/EC) 325 mg PO DAILY spironolactone 50 mg tablet 50 mg PO BID fluoxetine 20 mg tablet 20 mg PO DAILY Qty: 30 1RF Discharge Orders: Discharge ED (Routine); Ordered 12/25/24 Ordered By: Dante Tariq Referrals: Meena Jade FNP-BC [Primary Care Provider] - Patient Instructions: Constipation (ED) Activity Restrictions/Additional Instructions: Increase your dietary fiber. Drink plenty of fluids. [id number] MiraLAX. Follow-up with regular doctor. Return with any new or worsening. Stand Alone Forms: Work/School Release Print Language: Citizen [place] Coding Level of Care Code ED Head And Neck Surgeon for Chg Fwd Documented by User: Thierno Romo, 12/26/24 01:21 HPI - Abdominal Pain General: Chief Complaint: Abdominal Pain Stated Complaint: ABD Pain Time Seen by Provider: 12/25/24 20:08 Related Data Home Medications ?Medication ?Instructions ?Recorded ?Confirmed ferrous sulfate 325 mg (65 mg 325 mg PO DAILY 04/14/24 12/20/24 iron) tablet,delayed release spironolactone 50 mg tablet 50 mg PO BID 04/14/24 12/20/24 Previous Rx's ?Medication ?Instructions ?Recorded fluoxetine 20 mg tablet 20 mg PO DAILY #30 tabs 11/21/24 Allergies Allergy/AdvReac Type Severity Reaction Status Date / Time No Known Allergies Allergy Verified 12/20/24 13:24 PFS ED PFSH: Medical History Cannabis abuse Binge eating disorder Hirsutism Constipation Reflux esophagitis Hot flashes Fatigue Irregular bleeding Psychiatric care History of cardiac murmur As an infant she had evaluation and was followed by cardiology until age 2 with innocent murmur confirmed by echocardiogram. Surgical History S/P gastric sleeve procedure Performed in 2019 prior to moving to [place]. Family History Father Hyperlipidemia Hypertension Mother Diabetes Denies family history of Colon cancer Ovarian cancer Heart disease Breast cancer Uterine cancer Thyroid disease Stroke Social History Smoking and tobacco/nicotine status: never used tobacco/nicotine Course Vital Signs: Vital signs: Vital Signs Temperature 97.2 F L 12/25/24 20:10 Pulse Rate 74 12/25/24 22:30 Respiratory Rate 16 12/25/24 20:10 Blood Pressure 121/69 12/25/24 22:30 Pulse Oximetry 97 12/25/24 22:30 Oxygen Delivery Me thod Room Air 12/25/24 22:30 MDM - Abdominal Pain Medical Decision Making Patient presenting for abdominal pain, stating this is chronic but worsening over the past 2 days and associated with diarrhea. History of gastric sleeve 5 years ago. Vitals have been normal, exam overall unremarkable she was not significantly tender on palpation. Her lab work was all normal, x-ray showing no significant abnormalities. Do not suspect any surgical abdominal emergency or need for further workup. Will have her see her regular doctor for further workup and return with any new or worsening. Stable for discharge at this time. This patient was originally seen by Mr. Chandni PA-C.? I agree with his history, evaluation, and treatment. Lab Data 12/25/24 21:09 12/25/24 21:09 Labs/Radiology: Radiology Impressions KUB X-Ray 12/25/24 21:34 IMPRESSION: Nonobstructive bowel-gas pattern. Laboratory Results WBC 9.24 10^3/uL (4.5-13.0) 12/25/24 21:09 RBC 4.34 10^6/uL (3.85-5.65) 12/25/24 21:09 Hgb 12.10 g/dL (12.4-14.8) L 12/25/24 21:09 Hct 37.8 % (36-47) 12/25/24 21:09 MCV 87.1 fl (85-98) 12/25/24 21:09 MCH 27.9 pg (27-33) 12/25/24 21:09 MCHC 32.0 g/dL (30-55) 12/25/24 21:09 RDW 13.2 % (12.1-15.1) 12/25/24 21:09 Plt Count 307 10^3/cmm (157-399) 12/25/24 21:09 MPV 9.1 fL (7.4-10.4) 12/25/24 21:09 Neut % (Auto) 68.1 % 12/25/24 21:09 Lymph % (Auto) 17.5 % 12/25/24 21:09 Desha % (Auto) 5.2 % 04/13/25 21:09 Eos % (Auto) 8.5 % 12/25/24 21:09 Baso % (Auto) 0.4 % 12/25/24 21:09 Neut # (Auto) 6.28 10^3/uL (1.8-8.0) 12/25/24 21:09 Lymph # (Auto) 1.6 10^3/uL (1.5-6.5) 12/25/24 21:09 Desha # (Auto) 0.5 10^3/uL (0.2-0.9) 12/25/24 21:09 Eos # (Auto) 0.8 10^3/uL (0.0-0.8) 12/25/24 21:09 Baso # (Auto) 0.0 10^3/uL (0.0-0.1) 12/25/24 21:09 Nucleated RBC % (auto) 0 % 12/25/24 21: Nucleated RBCs # 0.0 /100WBC 12/25/24 21:09 Sodium 140 mmol/L (136-145) 12/25/24 21:09 Potassium 4.0 mmol/L (3.5-5.1) 12/25/24 21:09 Chloride 106 mmol/L (98-107) 12/25/24 21:09 Carbon Dioxide 22 mmol/L (22-29) 12/25/24 21:09 Anion Gap 16.0 (5-19) 12/25/24 21:09 BUN 12 mg/dL (6-20) 12/25/24 21:09 Creatinine 0.7 mg/dL (0.5-0.9) 12/25/24 21:09 GFR Calculation 106.7 mL/min (90-130) 12/25/24 21:09 Glucose 86 mg/dL (65-115) 12/25/24 21:09 Calculated Osmolality 289 mOsm/kg (285-295) 12/25/24 21:09 Calcium 9.2 mg/dL (8.5-10.5) 12/25/24 21:09 Total Bilirubin 0.2 mg/dL (0.15-1.2) 12/25/24 21:09 AST 14 U/L (0-32) 12/25/24 21: ALT 9 U/L (0-33) 12/25/24 21:09 Alkaline Phosphatase 88 U/L (35-105) 12/25/24 21:09 Total Protein 7.3 g/dL (6.6-8.7) 12/25/24 21:09 Albumin 4.4 g/dL (3.5-5.2) 12/25/24 21:09 Globulin 2.9 g/dL (1.3-4.6) 12/25/24 21:09 Lipase 17 U/L (13-60) 12/25/24 21:09 HCG, Qual Negative (Negative) 12/25/24 21:09 Urine Color Yellow (Yellow) 12/25/24 21:00 Urine Appearance Clear (CLEAR) 12/25/24 21:00 Urine pH 5 (5-7) 12/25/24 21:00 Ur Specific [place] 1.025 (1.005-1.030) 12/25/24 21:00 Urine Protein Neg (Negative) 12/25/24 21:00 Urine Glucose (UA) Norm (Normal) 12/25/24 21:00 Urine Ketones Negative (Negative) 12/25/24 21:00 Urine Blood Neg (Negative) 12/25/24 21:00 Urine Nitrate Negative (Negative) 12/25/24 21:00 Urine Bilirubin 1+ (Negative) H 12/25/24 21:00 Urine Urobilinogen Norm mg/dL (Negative) 12/25/24 21:00 Ur Leukocyte Esterase Trace (Negative) H 12/25/24 21:00 Urine RBC 0-2 /hpf (0-2) 12/25/24 21:00 Urine WBC 6-10 /hpf (0-5) 12/25/24 21:00 Ur Squamous Epith Cells 11-20 /hpf (0-5) H 12/25/24 21:00 Amorphous Sediment Not Reportable 12/25/24 21:00 Urine Bacteria Trace /hpf (NONE) 12/25/24 21:00 Hyaline Casts 1.65 /lpf 12/25/24 21:00 Discharge Plan Discharge Patient Disposition: Home Clinical Impression: Constipation Qualifiers: Constipation type: slow transit constipation Qualified Code(s): K59.01 - Slow transit constipation Condition: Stable Prescriptions: No Action ferrous sulfate 325 mg (65 mg iron) tablet,delayed release (DR/EC) 325 mg PO DAILY spironolactone 50 mg tablet 50 mg PO BID fluoxetine 20 mg tablet 20 mg PO DAILY Qty: 30 1RF Discharge Orders: Discharge ED (Routine); Ordered 12/25/24 Ordered By: Dante Tariq Referrals: Meena Jade FNP-BC [Primary Care Provider] - Patient Instructions: Constipation (ED) Activity Restrictions/Additional Instructions: Increase your dietary fiber. Drink plenty of fluids. [id number] MiraLAX. Follow-up with regular doctor. Return with any new or worsening. Stand Alone Forms: Work/School Release Print Language: Citizen [place] Coding Level of Care Code ED Head And Neck Surgeon for Margo Eubanks
[2024-12-25] MEDS: acetaminophen 500 mg Tablet 1000 MG PO (21:20)
[2024-12-25 21:22] VITALS: BP 148/90; PULSE 84; O2SAT 96
[2024-12-25 21:28] LABS: Add Urine Microscopic? NO
[2024-12-25 21:28] LABS: Basophils % 0.4 %; Eosinophils # 0.8 10^3/uL (0.0-0.8); Eosinophils % 8.5 %; Hematocrit 37.8 % (36-47); Lymphocytes # 1.6 10^3/uL (1.5-6.5); Lymphocytes % 17.5 %; Mean Corpuscular Hemoglobin 27.9 pg (27-33); Mean Corpuscular Volume 87.1 fl (85-98); Mean Platelet Volume 9.1 fL (7.4-10.4); Monocytes # 0.5 10^3/uL (0.2-0.9); Monocytes % 5.2 %; Neutrophils # 6.28 10^3/uL (1.8-8.0); Neutrophils % 68.1 %; Nucleated Red Blood Cells % 0 %; Platelet Count 307 10^3/cmm (157-399); Red Blood Count 4.34 10^6/uL (3.85-5.65); Red Cell Distribution Width 13.2 % (12.1-15.1); White Blood Count 9.24 10^3/uL (4.5-13.0)
[2024-12-25 21:33] LABS: Bilirubin Urine 1+ (Negative); Blood Urine Neg (Negative); Glucose Urine UA Norm (Normal); Ketones Urine Negative (Negative); Leukocyte Esterase Urine Trace (Negative); Nitrate Urine Negative (Negative); Protein Urine Neg (Negative); Specific Gravity, Urine 1.025 (1.005-1.030); Urine Appearance Clear (CLEAR); Urine Color Yellow (Yellow); Urobilinogen Urine Norm (Negative); pH Urine 5 (5-7)
[2024-12-25 21:34] LABS: Charge for UA Resulting for Rev
--- NOTE | 2024-12-25 21:34 | XRR_ITS ---
PROCEDURE INFORMATION: Exam: XR Abdomen Exam date and time: 12/25/2024 10:11 PM Age: 19 years old Clinical indication: Constipation and nausea and vomiting; Abdominal pain; Localized; Prior surgery; Surgery date: 6+ months; Surgery type: Gastric sleeve. Iud; C/O lower abd pain with n/v and constipation TECHNIQUE: Imaging protocol: Radiologic exam of the abdomen. Views: Frontal supine view of the abdomen. 1 View. COMPARISON: No relevant prior studies available. FINDINGS: Gastrointestinal tract: Normal. No bowel dilation. Bones/joints: Unremarkable. XR/XR KUB portable 35375 IMPRESSION: Nonobstructive bowel-gas pattern.
[2024-12-25 21:35] LABS: Bacteria Urine Trace /hpf; Hyaline Casts Urine 1.65 /lpf; RBC Urine 0-2 /hpf (0-2)
[2024-12-25 21:40] LABS: Alanine Aminotransferase 9 U/L (0-33); Albumin Level 4.4 g/dL (3.5-5.2); Alkaline Phosphatase 88 U/L (35-105); Aspartate Amino Transferase 14 U/L (0-32); Blood Urea Nitrogen 12 mg/dL (6-20); Calcium 9.2 mg/dL (8.5-10.5); Carbon Dioxide 22 mmol/L (22-29); Chloride 106 mmol/L (98-107); Creatinine Clr Calc Pharmacy 152.7118; Globulin 2.9 g/dL (1.3-4.6); Glomerular Filtration Rate 106.7 mL/min (90-130); Glucose 86 mg/dL (65-115); Lipase 17 U/L (13-60); Osmolality Calculated 289 mOsm/kg (285-295); Sodium 140 mmol/L (136-145); Total Bilirubin 0.2 mg/dL (0.15-1.2); Total Protein 7.3 g/dL (6.6-8.7)
[2024-12-25 21:50] VITALS: BP 118/64; PULSE 80; O2SAT 96
[2024-12-25 21:53] LABS: HCG, Serum Qual Negative (Negative)
[2024-12-25 22:00] VITALS: BP 124/74; PULSE 76; O2SAT 97
[2024-12-25 22:30] VITALS: BP 121/69; PULSE 74; O2SAT 97
--- NOTE | 2024-12-26 07:08 | DCPLANNER ---
messaged wpfm for er f/u
== END 2024-12-25 23:22 | disposition home or self-care (01) ==
PROVIDERS: Emergency Provider Physician Assistant; PCP Nurse Practitioner
DX: K59.01 Slow transit constipation (principal)
CPT/HCPCS: 36415; 74018; 80053; 81003; 83690; 84703; 85025; 99284; J9999

== ENCOUNTER → 2025-01-12 09:27 | Outpatient (BNVA) | payer BC, MEDICAID, SELFPAY | PROVIDERS: PCP Family Medicine; Visit Provider Family Medicine | DX: R35.0 Frequency of micturition (principal); R31.29 Other microscopic hematuria; Z13.6 Encounter for screening for cardiovascular disorders; R35.89 Other polyuria; D50.9 Iron deficiency anemia, unspecified | CPT/HCPCS: 80053; 81003; 81513; 82728; 83036; 83525; 83550; 85025; 87086; 87481; 87491; 87591; 87661 ==

== ENCOUNTER 2025-03-21 03:14 | Emergency (ER) | payer BC, MEDICAID, SELFPAY ==
--- OUTSIDE RECORDS SUMMARY | 2022-02-05 04:00 | XMS_ITS | Continuity of Care Document ---
Author Organization [facility] Address [id number] [address] Phone Care Team Providers Care Fire Extinguisher Technician Name Role Phone Fredy Santiago DDS Unavailable Unavailabl e Medications Medication Instructions Dosage Effective Dates (start - stop) Status Comments chlorhexidine gluconate 0.12 % mouthwash place 15 milliliter by mouth (after meals), swish one minute then spit out - Active Start on 3rd day after surgery, use salt/water first 3 days. clonazepam 1 mg tablet Take 1 (one) tablet 1 (one) hour prior to procedure. - Active Percocet 5 mg-325 mg tablet take 1 (one) tablet by oral route 1 (one) hour prior to procedure. Take 1 (one) tab q6h PRN pain after surgery. - Active ibuprofen 800 mg tablet take 1 tablet by oral route 3 times every day with food 800 MG - Active Anti-inflamm parvin ry caused by Oral Surgery, Do not used more than 3000mg per day. Procedures Procedure Date EDR Approval Note Removal Of Impacted Tooth Completely Bony Removal Of Impacted Tooth Completely Bony Non-Intravenous Conscious Sedation EDR Approval Note NO CHARGE Advance Directives Directive Yes / No Effective Date File Name No Information Encounters Encounter Description Practice Location Reason(s) For Visit Diagnoses Date Provider Providers Copied on Encounter [facility], [id number] [facility], [place], [place], [id number], [place] tel:[phone] [facility] No Information Jack Daniel. [address] [place] [address], [address], [place]. tel:[phone] Referring Provider: Fredy Santiago, [address] [place] [address], [address]. tel:[phone] [facility], [id number] [facility], [place], [place], [id number], [place] tel:[phone] [facility] No Information Jack Daniel. [address] [place] [address], [address], [place]. tel:[phone] Referring Provider: Fredy Santiago, [address] [place] [address], [address]. tel:[phone] Family History Family Member Type Diagnosis Age At Onset No Information Payers Payer name Insurance type Covered republican ID Douglas parrish(s) [id number] Social History Type Description Quantity Date Captured Comments Sex Female Smoking Status No Information Sexual Orientation Bisexual Gender Identity Female Chief Complaint And Reason For Visit No Information Reason For Referral Reason For Referral No Information History Of Present Illness Encounter Date Complaint History Of Prese nt Illness No Information Functional Status Date Functional Assessmen t No Information Instructions Date Instruction Additional Infor mation No Information Assessments Type Assessment Date No Information Patient Care Teams Name Effective Dates (start - stop) Status Members No Information
--- OUTSIDE RECORDS SUMMARY | 2025-03-21 03:19 | XMS_ITS | Patient Health Record ---
Author Organization [facility] Billing Info Address [address] [place] [address] [place] [address] Care Team Providers Care Office Communication Professor Name Role Phone NASIM TORRES MD Primary Care Provider Unava ilable Reason For Referral No Information Medications Medication SIG (Take, Route, Frequency, Duration) Notes Start Date End Date Status Acetaminophen-Codei ne #3 300-30 MG 1 tablet as needed Orally every 6 hrs Verbal order per provider, read back & confirmed 03/26/2015 Not-Taking Immunizations Vaccine Route Administration Date Status Comme nts FLU (Past vaccine of unknown type) 0 03/26/2015 R efused Social History Tobacco Use: Social History Observation Description Date Details (start date - stop date) Never Smoker NA - NA Tobacco Status: Question Answer Notes Patient is a never smoker Problems No Known Problems Plan Of Treatment No Information Insurance Providers Payer Name Payer Address Payer Phone Subscriber Number Group Number Insured Name Patient Relationship to Insured Coverage Start Date Coverage End Date [employer] AFTER [address] [address] [address] [place], [place] [id number] Smiley Juarez Self - patient is the insured 3 Medical (General) History Medical History History ICD Code ADHD, OCD Right Hand Dominant left clavicle fracture/2014 Surgical History Surgery Date(Month/Year) tubes in ears 2009 Reset bone in right arm, [facility] 2007 Hospitalization History Reason Date(Month/Year) In conjunction withsurgeries listed
[2025-03-21 03:25] VITALS: BP 115/75; PULSE 95; RESP 17; TEMP 36.7; O2SAT 97; BMI 41.1
--- NOTE | 2025-03-21 03:50 | XRR_ITS ---
PROCEDURE INFORMATION: Exam: XR Right Finger(s) Exam date and time: 03/21/2025 3:57 AM Age: 19 years old Clinical indication: Injury or trauma; Other: Jammed RT middle finger; Work related; Blunt trauma (contusions or hematomas); Right; Additional info: Right middle finger pain TECHNIQUE: Imaging protocol: Radiologic exam of the right fingers. Views: Minimum 2 views. COMPARISON: No relevant prior studies available. FINDINGS: Bones/joints: Normal. No fracture or dislocation. Soft tissues: Normal. XR/XR finger RT min 2V 30222 IMPRESSION: No acute findings.
--- NOTE | 2025-03-21 07:36 | W.ED.EXTPRO ---
HPI - Extremity Problem General: Chief complaint: Extremity Injury, Upper Stated complaint: R middle finger jammed Time Seen by Provider: 03/21/25 05:57 History of Present Illness: 19-year-old female presents emergency room she reports having jammed her right middle finger she is concerned it may be broken she is feeling some discomfort. Related Data Previous Rx's ?Medication ?Instructions ?Recorded spironolactone 50 mg tablet 50 mg PO BID #60 tabs 01/12/25 oxybutynin chloride 10 mg 10 mg PO DAILY #90 tabs 01/15/25 tablet,extended release 24 hr fluoxetine 20 mg tablet 20 mg PO DAILY #30 tabs 02/16/25 Allergies Allergy/AdvReac Type Severity Reaction Status Date / Time No Known Allergies Allergy Verified 03/14/25 14:03 [facility] ED PFSH: Medical History Cannabis abuse Binge eating disorder Hirsutism Constipation Reflux esophagitis Hot flashes Fatigue Irregular bleeding Psychiatric care History of cardiac murmur As an infant she had evaluation and was followed by cardiology until age 2 with innocent murmur confirmed by echocardiogram. Surgical History S/P gastric sleeve procedure Performed in 2019 prior to moving to [place]. Family History Father Hyperlipidemia Hypertension Mother Diabetes Denies family history of Colon cancer Ovarian cancer Heart disease Breast cancer Uterine cancer Thyroid disease Stroke Social History Smoking and tobacco/nicotine status: never used tobacco/nicotine Alcohol intake: current Alcohol intake frequency: holidays/special occasions only Substance/Drug Use: current Substance/Drug use frequency: daily Physical Exam Extremity: OTHER: Examination of the right third finger there is no obvious deformity no ecchymosis no laceration or abrasion collateral ligaments intact both at the DIP and the PIP. Good capillary refill patient can flex and extend against resistance. Course Vital Signs: Vital signs: Vital Signs Temperature 98.1 F 03/21/25 03:25 Pulse Rate 70 03/21/25 08:06 Respiratory Rate 17 03/21/25 03:25 Blood Pressure 130/97 03/21/25 08:06 Pulse Oximetry 96 03/21/25 08:06 Oxygen Delivery Me thod Room Air 03/21/25 03:25 MDM - Extremity (Nontraumatic) Medical Decision Making No acute findings on exam x-ray negative discharge patient home cedrick tape fingers together anti-inflammatories as needed Lab Data Radiology Impressions Finger X-Ray 03/21/25 03:50 IMPRESSION: No acute findings. All radiology interpretation(s) finalized by discharge Discharge Plan Discharge Patient Disposition: Home Clinical Impression: Sprain of middle finger Qualifiers: Encounter type: initial encounter Condition: Stable Prescriptions: No Action fluoxetine 20 mg tablet 20 mg PO DAILY Qty: 30 1RF spironolactone 50 mg tablet 50 mg PO BID Qty: 60 2RF oxybutynin chloride 10 mg tablet extended release 24hr 10 mg PO DAILY Qty: 90 0RF Discharge Orders: Discharge ED (Routine); Ordered 03/21/25 Ordered By: Augustin Frank Referrals: Darby Trevino DO [Primary Care Provider, Family Practice] Discharge Diet: Usual diet Discharge Activity: Resume usual activity Patient Instructions: Finger Sprain (ED), Opioid Safety, Pain Management, Patient Portal & [place] Instructions Activity Restrictions/Additional Instructions: Thank you for choosing [facility] for your healthcare needs today. It is very important that you follow up as instructed or that you return to the Emergency Department should you have concerns or if your condition changes or worsens in any way. You were seen today for pain in your right third finger. X-rays did not show any acute fracture recommend you cedrick tape the 3rd and 4th fingers on the right hand together for support and use Motrin or Aleve for comfort. You can also ice as needed. Stand Alone Forms: Work/School Release Print Language: Slovak Coding Level of Care Code ED Software Asset Manager for Margo Eubanks
--- NOTE | 2025-03-21 08:05 | PC.PHAR ---
Patient states she isn't consistent with taking medication . She states she has it but hasn't taking it in about 2 weeks
[2025-03-21 08:06] VITALS: BP 130/97; PULSE 70; O2SAT 96
== END 2025-03-21 08:06 | disposition home or self-care (01) ==
PROVIDERS: Emergency Provider Family Medicine; PCP Family Medicine
DX: S63.612A Unspecified sprain of right middle finger, initial encounter (principal); X58.XXXA Exposure to other specified factors, initial encounter
CPT/HCPCS: 73140; 99283

== ENCOUNTER → 2025-08-04 14:11 | Outpatient (BNVA) | payer BC, MEDICAID, SELFPAY | PROVIDERS: PCP Family Medicine; Visit Provider Family Medicine | DX: D50.8 Other iron deficiency anemias (principal) | CPT/HCPCS: 82728; 83550; 85025 ==